=== PATIENT | male | born 1960 | race African-American/Black ===

== ENCOUNTER 2020-07-25 13:57 | Inpatient (IN) | payer OTHER ==
[~2020-07-25] VITALS: Ht 172.7 cm; Wt 78.0 kg
[2020-07-25 14:06] VITALS: BP 179/101
[2020-07-25 15:05] LABS: ABSOLUTE LYMPHOCYTES 2.2 thou/uL (0.8-5.3); ABSOLUTE MONOCYTES 0.6 thou/uL (0.0-1.2); ABSOLUTE NEUTROPHILS 2.6 thou/uL (1.6-8.1); BASOPHILS 0.6 %; LYMPHOCYTES 40.8 %; MCH 33.4 pg (26.0-34.0); MCHC 34.6 g/dL (28.0-37.0); MCV 96.6 fL (80.0-100.0); MPV 9.1 fl. (7.2-11.1); NUCLEATED RBCS 0 /100WBC; PLATELET COUNT* 140 thou/uL (150-400); POLYS 47.6 %; RBC 5.08 mil/uL (4.50-6.00); WBC 5.5 thou/uL (4.0-11.0)
[2020-07-25 15:13] LABS: CALCIUM 8.7 mg/dL (8.5-10.1); CREATININE 1.2 mg/dL (0.6-1.3); POTASSIUM 4.6 mmol/L (3.5-5.1)
[2020-07-25 15:24] LABS: ALBUMIN 3.2 g/dL (3.4-5.0); TOTAL BILIRUBIN 0.7 mg/dL (<0.1-1.0); TOTAL PROTEIN 8.9 g/dL (6.4-8.2)
[2020-07-25 20:16] VITALS: BP 142/96
[2020-07-25 20:20] VITALS: BP 140/98
--- NOTE | 2020-07-25 23:36 | NUR ---
ASSUMED CARE OF PT AT 2024 FROM THE ER. PT IS ALERT AND ORIENTED. VSS. PERRLA. NO COMPLAINTS OF PAIN. PT IS IN COVID PRECAUTIONS. PT IS ON ROOM AIR. PT IS IN SINUS RYTHM ON THE TELEMETRY. PT IS RESTING COMFORTABLY IN BED. RESPIRATIONS ARE EVEN AND NONLABORED. WILL CONTINUE TO MONITOR PT.
[2020-07-26] VITALS: BP 134/80
[2020-07-26 04:00] VITALS: BP 149/91
[2020-07-26 04:47] LABS: HEMATOCRIT 44.3 % (42.0-52.0); HEMOGLOBIN 15.2 gm/dL (14.0-18.0); MCH 33.5 pg (26.0-34.0); MCHC 34.2 g/dL (28.0-37.0); MCV 97.8 fL (80.0-100.0); MPV 9.6 fl. (7.2-11.1); RBC 4.53 mil/uL (4.50-6.00)
[2020-07-26 04:54] LABS: CALCIUM 8.3 mg/dL (8.5-10.1); CREATININE 1.1 mg/dL (0.6-1.3); POTASSIUM 5.1 mmol/L (3.5-5.1)
[2020-07-26 08:00] VITALS: BP 170/117
[2020-07-26] MEDS ORDERED: LEVOFLOXACIN500 MG PO (10:12)
[2020-07-26 10:38] VITALS: BP 170/117
--- NOTE | 2020-07-26 10:55 | EKG ---
[place] [address] ELECTROCARDIOGRAM REPORT Name: VICENTA BLACK Room: [place] [address] ADM IN [facility].#: [id number] Admission: 07/25/20 Attend Phys: Fred Sanders Discharge: Date of : 58 Date of Service: 07/25/20 1406 Report #: [id number] THIS REPORT FOR: //name// [facility] ED Test Date: 2020-07-25 Test Time: 14:06:02 Pat Name: VICENTA BLACK Department: Room: [facility] Gender: M [employer]: : 1960 Requested By: Lisa Delcid Order Number: [id number] MD: Dani Marquez Measurements Intervals [place] Rate: 117 P: 50 AR: 133 QRS: 11 QRSD: 75 T: 26 QT: 292 QTc: 408 Interpretive Statements Sinus tachycardia Probable left atrial enlargement No previous ECG available for comparison Electronically Signed On 07-26-2020 10:55:39 CDT by Dani Marquez [email or web address] <ELECTRONICALLY SIGNED> By: Dani Marquez MD, [facility] 07/26/20 1055 1406 1406 Dani Marquez MD, [facility] /EPI
== END 2020-07-26 11:48 | disposition home or self-care (01) | DRG 177 ==
LOC: M.ERS 13:57 → M.TBA-ER 16:00 → M.2W 19:31
PROVIDERS: Family Medicine; Nurse Practitioner Family; ADMIT Internal Medicine; ATTEND Internal Medicine
DX: U07.1 COVID-19 (principal); J12.82 Pneumonia due to coronavirus disease 2019; E87.1 Hypo-osmolality and hyponatremia; E86.0 Dehydration; Z79.899 Other long term (current) drug therapy